=== PATIENT | female | born 1940 | race American Indian/Alaskan Native ===

== ENCOUNTER 2020-09-14 13:08 | Outpatient (CLI) | payer MEDICARE | END 2020-09-14 13:09 | disposition home or self-care (01) | LOC: LAB 13:08 | PROVIDERS: ATTEND Internal Medicine Nephrology | DX: E87.5 Hyperkalemia (principal) | CPT/HCPCS: 36415; 84132 ==

== ENCOUNTER 2020-10-19 09:40 | Outpatient (CLI) | payer MEDICARE ==
--- NOTE | 2020-10-19 11:39 | Magnetic Resonance Report ---
MR cervical spine wo con INDICATION / CLINICAL INFORMATION: Cervicalgia. TECHNIQUE: Multisequence, multiplanar images of the cervical spine were obtained. COMPARISON: None available. FINDINGS: ALIGNMENT: Normal alignment. VERTEBRAE:No aggressive osseous marrow signal. Vertebral body heights are preserved. SPINAL CORD: No abnormal cord signal [id number] ANALYSIS: C2-C3: No significant spinal canal stenosis. No significant foraminal narrowing. C3-C4: Small disc osteophyte complex. No significant spinal canal stenosis. Mild facet arthropathy. N o significant foraminal narrowing. C4-C5: Small disc osteophyte complex. No significant spinal canal stenosis. Mild facet arthropathy. N o significant foraminal narrowing. C5-C6: Disc osteophyte complex. Moderate facet arthropathy. Moderate spinal canal stenosis. Mild left and no significant right foraminal narrowing. C6-C7: Disc osteophyte complex with a right central protrusion moderate facet arthropathy. Effacement of ventral and dorsal CSF space. Cord flattening. No abnormal cord signal. Moderate spinal canal man nosis. Mild foraminal narrowing. C7-T1: No significant spinal canal stenosis. No significant foraminal narrowing. PARASPINAL SOFT TISSUES: No significant abnormality. ADDITIONAL FINDINGS: None. IMPRESSION: 1. 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 CERVICAL GRADING DEFINITIONS FOR THE PURPOSES OF THIS REPORT: Cervical canal stenosis: No stenosis: No significant attenuation of the CSF spaces Mild stenosis: Attenuation or effacement of the ventral CSF Moderate stenosis: Effacement of both the ventral and dorsal CSF, cord flattening, but so me CSF remaining Severe stenosis: Effacement of all CSF, cord compression Cervical neural foraminal stenosis (Leslie et al. [place] J Radiol. 2015 Apr-May;16(6):1294-302): No stenosis: No attenuation of the fat in the foramen Mild stenosis: Narrowest point of the foramen is larger than the extraforaminal nerve Moderate stenosis: Narrowest point of the foramen remains greater than 50% of the caliber of the extraforaminal nerve Severe stenosis: Narrowest point of the foramen is less than 50% of the caliber of th e extraforaminal nerve Signer Name: Dusty Leslie MD Signed: 10/19/2020 11:35 AM Workstation Name: [id number]
== END 2020-10-19 09:41 | disposition home or self-care (01) ==
LOC: MRI 09:40
PROVIDERS: ATTEND Specialist
DX: M50.223 Other cervical disc displacement at C6-C7 level (principal); M50.13 Cervical disc disorder with radiculopathy, cervicothoracic region; M48.02 Spinal stenosis, cervical region
CPT/HCPCS: 72141